=== PATIENT | male | born 1980 | race Caucasian/White ===

== ENCOUNTER 2017-11-26 12:31 | Emergency (ER) | payer SELFPAY ==
[2017-11-26 12:35] VITALS: BP 133/69; PULSE 76; RESP 14; TEMP 36.7; O2SAT 98
--- NOTE | 2017-11-26 12:45 | W.ED.GENAD ---
Discharge Plan Disposition Patient Disposition: HOME Condition: Stable Discharge Details Chief Complaint: Orthopedic Clinical Impression: Fracture of triquetral bone of left wrist Reason For Visit: FALL Primary Care Provider: NONE,NONE ED Provider: Carmen Pagan Home Meds and New Rx's Prescriptions: No Action No Known Home Meds RF: 0 Discharge Instructions Instructions: Wrist Fracture in Adults (ED), How to Use a Sling (GEN), Splint Care (ED) Additional Instructions: Please return immediately to the emergency department if you develop any new or worsening symptoms or if he become otherwise concerned. It is extremely important that you make an appointment to be seen by an orthopedic surgeon within the next 1-2 weeks for follow-up. Please take 400 mg of ibuprofen 3 times daily as needed for pain. Referrals: ORTHOPAEDICS,[facility] [OTHER] - Discharge Data Discharge Date/Time-TO BE ENTERED AT DEPARTURE: 11/26/17 15:15 Medical Decision Making MDM Narrative Medical decision making narrative: Aries Amaro is a 37-year-old man with a history of major medical problems presenting to the emergency department with left wrist pain after ladder-related fall yesterday. On exam patient is very well and nontoxic-appearing. There is no evidence of intracranial, spinal, or significant thoracoabdominal injury. Left wrist is diffusely tender. The left hand is neurovascularly intact. The proximal forearm, elbow, humerus, shoulder are atraumatic. Concern for wrist/hand fracture. Plan for x-rays. X-rays concerning for triquetral fracture. Discussed patient with Dr. Costa, who requested cock-up splint and outpatient follow-up with Ortho. Splint placed with normal post splint check, exposed digits are neurovascularly intact. Sling provided for comfort. Patient placed on Ortho list. Lengthy discussion with patient regarding return to emergency department precautions and importance of outpatient follow-up with orthopedics. Patient is amenable to plan. Imaging Data Radiologic Study: Attestation: I personally reviewed and interpreted this imaging study as follows: Imaging: X-Ray Radiologist's impression: LEFT HAND: Three views. On the lateral view, there is an osseous fragment posterior to the wrist. This may represent a displaced triquetral fracture. No other findings to suggest a fracture or dislocation are seen. No radiopaque foreign bodies are seen in the soft tissues. IMPRESSION: Osseous density at the dorsum of the wrist suspicious for a triquetral fracture. Please correlate with physical exam and clinical history. LEFT WRIST: Three views. There is an osseous density at the dorsum of the wrist suspicious for a triquetral fracture. No other fracture or dislocation is seen. There does appear to be some soft tissue swelling at the dorsum of the wrist. IMPRESSION: Osseous fragment in the soft tissues at the dorsum of the wrist suspicious for a triquetral fracture. HPI - General Adult General Mode of arrival: ambulatory. Date/Time Provider Initiated Documentation: 11/26/17 12:43. Limitations to Documentation: no limitations. Information obtained by: patient. HPI Narrative: Aries Amaro 37-year-old man without reported history of major medical problems presenting to the emergency department with left wrist pain. Patient reports that yesterday he climbed a ladder that was propped against the house. The latter was approximately 12 feet high. Patient reports that when he got to the top of the ladder, he began to slide down and fell to the ground. Patient reports that he landed on his left side. He initially had pain in his left wrist and left lower leg. He did not hit his head and had no loss of consciousness. Patient has been feeling overall well since the injury yesterday, aside from continued left wrist pain. Now with no pain in the left leg and no other pain. No cough, no shortness of breath, no vomiting. He denies numbness, tingling, or weakness of the left arm or hand. Has been eating and drinking as usual. No recent illnesses. He reports tetanus up-to-date. Related Data Home Medications Medication Instructions Recorded Confirmed Unknown [No Known Home Meds] 11/26/17 11/26/17 Allergies Allergy/AdvReac Type Severity Reaction Status Date / Time No Known Allergies Allergy Unverified 11/26/17 12:43 General Stated Complaint: Orthopedic WERO: 3 Review of Systems Review of Systems Constitutional: denies fevers Eyes: denies eye pain ENT: denies facial pain, dental pain, sore throat Cardiovascular: denies chest pain, edema Respiratory: denies SOB, cough GI: denies abdominal pain, vomiting, diarrhea : denies flank pain MSK: denies back pain, neck pain, myalgias; reports left wrist pain Skin: denies rash Neuro: denies headaches, lightheadedness, weakness, numbness, tingling [facility] Social History Smoking/Tobacco Use Status: Current every day Exam Narrative Exam Narrative: Constitutional: well and [id number], pleasant, conversing normally HENT: head atraumatic, normocephalic normal inspection, mucous membranes moist Eyes: conjunctiva normal, sclera normal, pupils 3mm b/l Neck: no stridor, normal ROM, trachea midline Chest: normal inspection Resp: normal work of breathing Cardio: normal rate, normal rhythm, radial pulses intact and symmetric Skin: warm, dry, normal color, no rash Neuro: alert, not altered, grossly non-focal, normal tone, normal gait Ext: left wrist with mild dorsal edema. diffuse TTP of the dorsal wrist. Able to range but with some pain. dorsal left hand diffusely TTP. No snuffbox TTP. FDS/FDP, UCL intact. normal sensation. Extremities o/w atraumatic Psych: normal mood, normal affect, normal behavior Course Vital Signs Temperature 36.7 C 11/26/17 12:35 Pulse 76 11/26/17 12:35 Respiratory Rate 14 11/26/17 12:35 Blood Pressure 133/69 11/26/17 12:35 Pulse Oximetry 98 11/26/17 12:35 Temperature 36.7 C 11/26/17 12:35 Pulse 76 11/26/17 12:35 Respiratory Rate 14 11/26/17 12:35 Blood Pressure 133/69 11/26/17 12:35 Pulse Oximetry 98 11/26/17 12:35
--- NOTE | 2017-11-26 13:01 | DI.RAD_ITS ---
SYMPTOMS/DIAGNOSIS: TRAUMA, WRIST PAIN, HAND PAIN LEFT HAND: Three views. On the lateral view, there is an osseous fragment posterior to the wrist. This may represent a displaced triquetral fracture. No other findings to suggest a fracture or dislocation are seen. No radiopaque foreign bodies are seen in the soft tissues. IMPRESSION: Osseous density at the dorsum of the wrist suspicious for a triquetral fracture. Please correlate with physical exam and clinical history. LEFT WRIST: Three views. There is an osseous density at the dorsum of the wrist suspicious for a triquetral fracture. No other fracture or dislocation is seen. There does appear to be some soft tissue swelling at the dorsum of the wrist. IMPRESSION: Osseous fragment in the soft tissues at the dorsum of the wrist suspicious for a triquetral fracture.
--- NOTE | 2017-11-26 13:19 | ED.GENADUL_ITS ---
Discharge Plan Disposition Patient Disposition: HOME Condition: Stable Discharge Details Chief Complaint: Orthopedic Clinical Impression: Fracture of triquetral bone of left wrist Reason For Visit: FALL Primary Care Provider: NONE,NONE ED Provider: Carmen Pagan Home Meds and New Rx's Prescriptions: No Action No Known Home Meds RF: 0 Discharge Instructions Instructions: Wrist Fracture in Adults (ED), How to Use a Sling (GEN), Splint Care (ED) Additional Instructions: Please return immediately to the emergency department if you develop any new or worsening symptoms or if he become otherwise concerned. It is extremely important that you make an appointment to be seen by an orthopedic surgeon within the next 1-2 weeks for follow-up. Please take 400 mg of ibuprofen 3 times daily as needed for pain. Referrals: ORTHOPAEDICS,[facility] [OTHER] - Discharge Data Discharge Date/Time-TO BE ENTERED AT DEPARTURE: 11/26/17 15:15 Medical Decision Making MDM Narrative Medical decision making narrative: Aries Amaro is a 37-year-old man with a history of major medical problems presenting to the emergency department with left wrist pain after ladder-related fall yesterday. On exam patient is very well and nontoxic-appearing. There is no evidence of intracranial, spinal, or significant thoracoabdominal injury. Left wrist is diffusely tender. The left hand is neurovascularly intact. The proximal forearm, elbow, humerus, shoulder are atraumatic. Concern for wrist/hand fracture. Plan for x-rays. X-rays concerning for triquetral fracture. Discussed patient with Dr. Costa , who requested cock-up splint and outpatient follow-up with Ortho. Splint placed with normal post splint check, exposed digits are neurovascularly intact. Sling provided for comfort. Patient placed on Ortho list. Lengthy discussion with patient regarding return to emergency department precautions and importance of outpatient follow-up with orthopedics. Patient is amenable to plan. Imaging Data Radiologic Study: Attestation: I personally reviewed and interpreted this imaging study as follows: Imaging: X-Ray Radiologist's impression: LEFT HAND: Three views. On the lateral view, there is an osseous fragment posterior to the wrist. This may represent a displaced triquetral fracture. No other findings to suggest a fracture or dislocation are seen. No radiopaque foreign bodies are seen in the soft tissues. IMPRESSION: Osseous density at the dorsum of the wrist suspicious for a triquetral fracture. Please correlate with physical exam and clinical history. LEFT WRIST: Three views. There is an osseous density at the dorsum of the wrist suspicious for a triquetral fracture. No other fracture or dislocation is seen. There does appear to be some soft tissue swelling at the dorsum of the wrist. IMPRESSION: Osseous fragment in the soft tissues at the dorsum of the wrist suspicious for a triquetral fracture. HPI - General Adult General Mode of arrival: ambulatory . Date/Time Provider Initiated Documentation: 11/26/17 12:43 . Limitations to Documentation: no limitations . Information obtained by: patient . HPI Narrative: Aries Amaro 37-year-old man without reported history of major medical problems presenting to the emergency department with left wrist pain. Patient reports that yesterday he climbed a ladder that was propped against the house. The latter was approximately 12 feet high. Patient reports that when he got to the top of the ladder, he began to slide down and fell to the ground. Patient reports that he landed on his left side. He initially had pain in his left wrist and left lower leg. He did not hit his head and had no loss of consciousness. Patient has been feeling overall well since the injury yesterday , aside from continued left wrist pain. Now with no pain in the left leg and no other pain. No cough, no shortness of breath, no vomiting. He denies numbness, tingling, or weakness of the left arm or hand. Has been eating and drinking as usual. No recent illnesses. He reports tetanus up-to-date. Related Data Home Medications Medication Instructions Recorded Confirmed Unknown [No Known Home Meds] 11/26/17 11/26/17 Allergies Allergy/AdvReac Type Severity Reaction Status Date / Time No Known Allergies Allergy Unverified 11/26/17 12:43 General Stated Complaint: Orthopedic WERO: 3 Review of Systems Review of Systems Constitutional: denies fevers Eyes: denies eye pain ENT: denies facial pain, dental pain, sore throat Cardiovascular: denies chest pain, edema Respiratory: denies SOB, cough GI: denies abdominal pain, vomiting, diarrhea : denies flank pain MSK: denies back pain, neck pain, myalgias; reports left wrist pain Skin: denies rash Neuro: denies headaches, lightheadedness, weakness, numbness, tingling [facility] Social History Smoking/Tobacco Use Status: Current every day Exam Narrative Exam Narrative: Constitutional: well and [id number], pleasant, conversing normally HENT: head atraumatic, normocephalic normal inspection, mucous membranes moist Eyes: conjunctiva normal, sclera normal, pupils 3mm b/l Neck: no stridor, normal ROM, trachea midline Chest: normal inspection Resp: normal work of breathing Cardio: normal rate, normal rhythm, radial pulses intact and symmetric Skin: warm, dry, normal color, no rash Neuro: alert, not altered, grossly non-focal, normal tone, normal gait Ext: left wrist with mild dorsal edema. diffuse TTP of the dorsal wrist. Able to range but with some pain. dorsal left hand diffusely TTP. No snuffbox TTP. FDS/FDP, UCL intact. normal sensation. Extremities o/w atraumatic Psych: normal mood, normal affect, normal behavior Course Vital Signs Temperature 36.7 C 11/26/17 12:35 Pulse 76 11/26/17 12:35 Respiratory Rate 14 11/26/17 12:35 Blood Pressure 133/69 11/26/17 12:35 Pulse Oximetry 98 11/26/17 12:35 Temperature 36.7 C 11/26/17 12:35 Pulse 76 11/26/17 12:35 Respiratory Rate 14 11/26/17 12:35 Blood Pressure 133/69 11/26/17 12:35 Pulse Oximetry 98 11/26/17 12:35
[2017-11-26] MEDS: Ibuprofen 400 MG TAB PO (14:55)
== END 2017-11-26 15:15 | disposition home or self-care (01) ==
PROVIDERS: Emergency Provider Student in an Organized Health Care Education/Training Program
DX: S62.112A Displaced fracture of triquetrum [cuneiform] bone, left wrist, initial encounter for closed fracture (principal); W10.8XXA Fall (on) (from) other stairs and steps, initial encounter
CPT/HCPCS: 25630; 73110; 73130; L3650; L3908

== ENCOUNTER 2022-01-02 16:41 | Emergency (ER) | payer MEDICAID, SELFPAY ==
[2022-01-02 16:52] VITALS: BP 111/72; PULSE 64; RESP 17; TEMP 36.7; O2SAT 97
--- NOTE | 2022-01-02 17:45 | DI.RAD_ITS ---
Exam(s) XR CHEST 2V PA LATERAL EXAM: XR CHEST 2V PA LATERAL CLINICAL HISTORY: cough, r/o acute disease TECHNIQUE: 2D digital imaging was performed. COMPARISON: No exams were available for comparison FINDINGS: The heart is not enlarged. The lungs are clear and well expanded. No pleural effusion seen. Mediastin al contours appear intact. IMPRESSION: Normal chest. RADIATION DOSE DELIVERED: Total DLP
[2022-01-02 19:09] VITALS: BP 131/75; PULSE 62; RESP 18; TEMP 36.9; O2SAT 96
--- NOTE | 2022-01-02 19:14 | DI.VRAD_ITS ---
PROCEDURE INFORMATION: Exam: XR Chest Exam date and time: 01/02/2022 18:47 Age: 41 years old Clinical indication: Cough and other: R/O acute disease TECHNIQUE: Imaging protocol: Radiologic exam of the chest. Views: 2 views. COMPARISON: No relevant prior studies available. FINDINGS: Lungs: Mild hyperinflation without airspace consolidation. Pleural spaces: No pleural effusion. No pneumothorax. Heart/Mediastinum: No cardiomegaly. Bones/joints: No acute fracture. IMPRESSION: Mild hyperinflation without airspace consolidation. Dictated and Authenticated by: Gracie Oliver MD. Ordering:RENE Hagan MD
--- NOTE | 2022-01-02 19:24 | ED.GENADUL_ITS ---
Discharge Plan Disposition Patient Disposition: HOME Condition: Stable Discharge Details Clinical Impression: Acute bronchitis Primary Care Provider: Lilly Monzon ED Provider: Danya Rowan Home Meds and New Rx's Prescriptions: New amoxicillin-pot clavulanate 875-125 mg tablet 1 tab PO BID 10 Days Qty: 20 0RF prednisone 20 mg tablet See Rx Instructions .ROUTE .COMPLEX Qty: 18 0RF Rx Instructions: Take 3 tabs daily for 3 days, then 2 tabs daily for 3 days, then 1 tab daily for 3 days. Continued methadone 10 mg/5 mL Solution 105 mg PO DAILY Discharge Instructions Instructions: Acute Bronchitis (ED) Additional Instructions: Drink plenty of fluids and get plenty of rest. Use the albuterol inhaler as needed and directed for cough, wheezing or shortness of breath. Prescriptions for steroids and antibiotics have been sent electronically to your pharmacy to take as directed until finished. Follow-up with your primary care doctor in 1 week. Return to the emergency department with any worsening or new concerning symptoms. Discharge Data Discharge Date/Time-TO BE ENTERED AT DEPARTURE: 01/02/22 19:53 Discharge Physician: Danya Rowan Medical Decision Making 41-year-old male with a history of tobacco smoking and on methadone for former opiate use in remission presents for productive cough, shortness of breath and wheezing for the past 2 weeks. Vitals within normal limits. He has a normal respiratory rate and oxygen saturation and is afebrile and appears nontoxic. He has diffuse wheezing throughout. Patient referred for chest x-ray which was negative for consolidation. Suspect bronchitis. Also discussed possibility of COVID although this appears less likely and more consistent with bronchitis. Patient was given a DuoNeb here with improvement of his symptoms and he felt better going home. He was also given a dose of oral steroids and oral Augmentin for bronchitis and to cover for potential for bacterial infection due to his persistent symptoms and history of smoking. Prescriptions for steroids and antibiotics sent electronically to his pharmacy. He was given an albuterol inhaler to go. Advised to follow up with the primary care doctor for re-evaluation. Usual and customary return precautions given prior to discharge. Medical Records Medical records reviewed: Yes I reviewed the patient's medical records. Imaging Data Radiologic Study: Radiologist's impression: XR Chest Exam date and time: 01/02/2022 18:47 Age: 41 years old Clinical indication: Cough and other: R/O acute disease TECHNIQUE: Imaging protocol: Radiologic exam of the chest. Views: 2 views. COMPARISON: No relevant prior studies available. FINDINGS: Lungs: Mild hyperinflation without airspace consolidation. Pleural spaces: No pleural effusion. No pneumothorax. Heart/Mediastinum: No cardiomegaly. Bones/joints: No acute fracture.? IMPRESSION: Mild hyperinflation without airspace consolidation. HPI General Mode of arrival: ambulatory . Date/Time Provider Initiated Documentation: 01/02/22 16:49 . Limitations to Documentation: no limitations . Information obtained by: patient . HPI Narrative: Pt is a 41yo M with a history of tobacco smoking who is on methadone for previous opiate abuse presents for productive cough, shortness of breath and wheezing for the past 2 weeks. He states his symptoms started with runny nose, nasal congestion, sore throat but states he has had since improved and still is mainly complaining of cough and shortness of breath. He denies any fever. He states he took a recent COVID test which is negative. Related Data Home Medications Medication Instructions Recorded Confirmed amoxicillin 875 mg-potassium 1 tab PO BID 10 days #20 tabs 01/02/22 clavulanate 125 mg tablet methadone 10 mg/5 mL oral solution 105 mg PO DAILY 01/02/22 01/02/22 prednisone 20 mg tablet See Rx Instructions .Route 01/02/22 .COMPLEX #18 tabs Previous Rx's Medication Instructions Recorded amoxicillin 875 mg-potassium 1 tab PO BID 10 days #20 tabs 01/02/22 clavulanate 125 mg tablet prednisone 20 mg tablet See Rx Instructions .Route 01/02/22 .COMPLEX #18 tabs Allergies Allergy/AdvReac Type Severity Reaction Status Date / Time No Known Allergies Allergy Unverified 01/02/22 16:56 General Stated Complaint: RespSymp WERO: 4 Review of Systems All systems reviewed & are unremarkable except as noted in HPI and below Constitutional Constitutional: Reports as per HPI, Denies chills and Denies fever(s) Eyes Eyes: Denies blurry vision ENT Ears, Nose, Mouth, and Throat: Denies dizziness, Denies sore throat and Denies throat swelling Cardiovascular Cardiovascular: Denies chest pain and Reports dyspnea Respiratory Respiratory: Reports cough and Reports dyspnea Gastrointestinal Gastrointestinal: Denies abdominal pain, Denies diarrhea and Denies vomiting Genitourinary Genitourinary: Denies hematuria and Denies dysuria Musculoskeletal Musculoskeletal: Denies back pain and Denies numbness Integumentary/Breasts Skin/Breast: Denies lesions and Denies rash Neurologic Neurologic: Denies dizziness, Denies localized weakness and Denies numbness Allergic/Immunologic Allergic/Immunologic: Denies throat swelling PFSH All Active Problems (Updated 01/02/22 @ 22:00 by Danya Rowan DO) Acute bronchitis (Acute) Medical History (Updated 01/02/22 @ 22:00 by Danya Rowan DO) Narcotic abuse in remission Surgical History (Updated 01/02/22 @ 22:00 by Danya Rowan DO) No significant past surgical history Social History Smoking/Tobacco Use Status: Current every day Tobacco Type: cigarettes Smoking risk assessment performed?: Yes Alcohol Intake: current Alcohol Intake frequency: a few times a month Drug use: Daily Substance use type: marijuana Do you feel safe in your relationship?: Yes Exam Const General: cooperative and no acute distress Orientation: alert, awake and oriented x3 HENMT Head: normal to inspection Ears: hearing grossly normal bilaterally, external ears normal and TM's normal bilaterally Face and sinus: normal facial exam Mouth: oral mucosae normal Throat: posterior oropharynx normal Eyes General: appearance normal, both eyes and all related structures Pupils: PERRL EOM: EOM intact bilaterally Neck Neck: normal visual inspection and No submandibular swelling Lymphatic: no lymphadenopathy noted Resp Effort & Inspection: normal respiratory effort and able to speak in complete sentences Auscultation: wheezes expiratory wheezes and inspiratory wheezes Cardio Rate: regular rate Rhythm: regular rhythm Skin General skin exam: no rashes or lesions noted Neuro General: patient alert, patient awake and patient oriented x3 Cognition: normal cognition Speech: speech normal Motor: muscle tone normal throughout Sensory Exam: no sensory deficits noted Extrem General: normal to inspection, full ROM, capillary refill normal, no calf tenderness bilaterally and no edema Psych Appearance: grossly normal Mental Status: mental status grossly normal Speech and Movement: speech and movement normal Affect: normal affect Course Vital Signs Vital signs: Vital Signs Temperature 98.0 F 01/02/22 16:52 Pulse 64 01/02/22 16:52 Respiratory Rate 17 01/02/22 16:52 Blood Pressure 111/72 01/02/22 16:52 Pulse Oximetry 97 01/02/22 16:52 Temperature 98.4 F 01/02/22 19:09 Temperature Source Oral 01/02/22 19:09 Pulse 62 01/02/22 19:09 Respiratory Rate 18 01/02/22 19:09 Respiratory Effort Short of Breath 01/02/22 16:54 Blood Pressure 131/75 01/02/22 19:09 Blood Pressure Position Sitting 01/02/22 16:52 Pulse Oximetry 96 01/02/22 19:09 Oxygen Delivery Method Room Air 01/02/22 19:09 Oxygen Flow Rate 0 01/02/22 19:09 Pain Level 0 01/02/22 19:09 PAWSS Have you Been Recently Intoxicated or Drunk Within the Last 30 days?: No Have you Ever Experienced Previous Episodes of Alcohol Withdrawal?: No Have you ever Experienced Withdrawal Seizures?: No Have you ever Experienced Delirium Tremens(DT)s?: No Have you ever undergone Alcohol Rehabilitation Treatment (i.e, inpt ot outpatient treatment programs)?: No Have you ever Experienced Blackouts?: No Have you ever Combined Alcohol with other Downers within the last 90 days?: No Have you ever Combined Alcohol with any other Substance of Abuse during the last 90 days?: No Result: 0
[2022-01-02] MEDS: predniSONE 20 MG TAB 60 MG PO (19:29)
[2022-01-02] MEDS: Albuterol/Ipratropium 3 ML UPD VIAL UPD (19:29)
[2022-01-02] MEDS: Amoxicillin 875/Clav. 125 TAB PO (19:29)
[2022-01-02] MEDS: Albuterol HFA 8 GM 60 PUFF INH IH (19:35)
[2022-01-02] MEDS: Inhaler, Assist Device 1 EACH MC (19:36)
[2022-01-02 19:47] VITALS: PULSE 88; RESP 1; RESP 18; O2SAT 98
== END 2022-01-02 19:53 | disposition home or self-care (01) ==
PROVIDERS: Emergency Provider Physician Assistant; PCP Family Medicine
DX: J20.9 Acute bronchitis, unspecified (principal); F17.210 Nicotine dependence, cigarettes, uncomplicated
CPT/HCPCS: 99283; 71046; 99284; J7512; J7620

== ENCOUNTER 2022-09-25 01:35 | Outpatient (CLI) | payer MEDICAID, SELFPAY ==
--- NOTE | 2022-09-25 10:15 | DI.CT_ITS ---
Exam(s) CT CHEST WO EXAM: CT CHEST WO CLINICAL HISTORY: [address] [place] [facility], R91.8. TECHNIQUE: Multi planar reconstructions were performed. CONTRAST MATERIAL: None COMPARISON: DX XR CHEST PA AND LATERAL (GENERIC) from 08/10/2022 DX XR CHEST from 08/22/2022 FINDINGS: CHEST: LUNGS: There are no infiltrates nor pleural effusions. No ominous pulmonary nodules evident. No sig nificant focal findings in the mainstem bronchi. Mild mucus is noted in the posterior wall of the lo wer trachea. No bronchiectasis. MEDIASTINUM: There is no obvious hilar nor mediastinal adenopathy. There is a nodule in the right thy roid lobe measuring approximately 1 cm x 1 cm. Noncalcified.No obvious axillary adenopathy CARDIAC: Heart size is normal. There is no pericardial effusion.Caliber of the thoracic aorta is wit hin normal limits. VISUALIZED UPPER ABDOMEN:No adrenal masses. No splenomegaly. OSSEOUS: There is a minimally displaced fracture of the lateral aspect of the left 3rd rib and there is a almost healed subjacent fracture of the left 4th rib. There is also partially healed fracture o f the left 6 rib. Also partially healed fracture of left 7th rib and left 8th rib and 9th rib and 10 th rib. There are no right rib fractures evident. No vertebral body fractures. No sternal fracture .. IMPRESSION: 1. There are multiple left-sided rib fractures involving the lateral and anterolateral aspects of the left 3rd through 10th ribs, these appearing subacute-partially healed, with the exception of the for rib fracture which does not exhibit callus formation at this time. No other fractures identified. No pneumothorax. No lung contusion. 2. No concerning lung nodules evident. 3. No intrathoracic adenopathy. RADIATION DOSE DELIVERED: 408.44mGy.cm Total DLP DATA REPOSITORY: All CT scans at this facility are submitted to the National Radiology Data Registry (NRDR) Dose Index Registry (DIR) with the [employer] (ACR). RADIATION OPTIMIZATION: All CT scans at this facility use at least one of these dose optimization te chniques: automated exposure control; mA and/or kV adjustment per patient size (includes targeted exa ms where dose is matched to clinical indication); or iterative reconstruction.
== END 2022-09-25 01:55 ==
LOC: DI 01:35
PROVIDERS: PCP Family Medicine; Visit Provider Family Medicine
DX: R91.8 Other nonspecific abnormal finding of lung field (principal); S22.42XA Multiple fractures of ribs, left side, initial encounter for closed fracture
CPT/HCPCS: 71250

== ENCOUNTER 2023-09-02 20:08 | Emergency (ER) | payer MEDICAID, SELFPAY ==
[2023-09-02 20:57] VITALS: BP 143/78; PULSE 86; RESP 16; TEMP 36.7; O2SAT 98
--- NOTE | 2023-09-02 21:00 | DI.RAD_ITS ---
Exam(s) XR CHEST 1V IN DI DEPT EXAM: XR CHEST 1V IN DI DEPT CLINICAL HISTORY: History of fall left hip pain TECHNIQUE: 2D digital imaging was performed. COMPARISON: CT CT CHEST WO from 09/25/2022 FINDINGS: LUNGS: Clear. No pleural abnormality seen. HEART: Normal size. AORTA: Normal diameter. BONES: Unremarkable for age. Soft tissues: Unremarkable. IMPRESSION: No acute findings. DATA REPOSITORY: RADIATION DOSE DELIVERED:
--- NOTE | 2023-09-02 21:00 | DI.RAD_ITS ---
Exam(s) XR HIP LT COMPLETE AP PELVIS EXAM: XR HIP LT COMPLETE AP PELVIS INDICATION: History of fall left hip pain. COMPARISON: CR XR PELVIS MIN 3 VIEWS from 08/14/2022 TECHNIQUE: 2D digital imaging was performed. Three views. FINDINGS: Cortical disruption seen at the left superior pubic ramus ischial junction, suspicious for nondisplac ed fracture. The femurs appear. The SI joints and pubic symphysis are not widened. No sacral fract ure is visible. IMPRESSION: Nondisplaced fracture at the left superior pubic ramus. DATA REPOSITORY: RADIATION DOSE DELIVERED:
--- NOTE | 2023-09-02 22:00 | DI.CT_ITS ---
Exam(s) CT THORACIC LUMBAR SPINE WO EXAM: CT THORACIC LUMBAR SPINE WO CLINICAL HISTORY: Low back pain. TECHNIQUE: Imaging Protocol: Axial, coronal and sagittal images were reconstructed utilizing bone an d soft tissue algorithm COMPARISON: CT CT CHEST WO from 09/25/2022 FINDINGS: Thoracic spine: Bones: No fractures are seen. The alignment of the spine is normal including the cervicothoracic nancy ction. Soft tissues: The soft tissues of the chest are unremarkable. No large disk herniations are identifie d. Minimal degenerative disc changes. Mild paraseptal and centrilobular emphysematous changes. Lumbar spine: No fracture is identified. Degenerative disc changes and facet degenerative changes are present at L 3-4 and L4-5, causing bilateral neural foraminal narrowing.. Soft tissues: There is no large disc herniation. No paraspinal hematoma. IMPRESSION: No acute abnormality of the thoracic or lumbar spine. RADIATION DOSE DELIVERED: 1,321.7mGy.cm Total DLP DATA REPOSITORY: All CT scans at this facility are submitted to the National Radiology Data Registry (NRDR) Dose Index Registry (DIR) with the [employer] (ACR). RADIATION OPTIMIZATION: All CT scans at this facility use at least one of these dose optimization te chniques: automated exposure control; mA and/or kV adjustment per patient size (includes targeted exa ms where dose is matched to clinical indication); or iterative reconstruction.
--- NOTE | 2023-09-02 22:03 | ED.GENADUL_ITS ---
Discharge Plan Discharge Details Chief Complaint: Orthopedic Clinical Impression: Closed fracture of left acetabulum Primary Care Provider: Nelda Ralph ED Provider: Darvin Shankar [facility] General Date/Time Provider Initiated Documentation: 09/02/23 21:04 . HPI Narrative: MDM Primary survey intact. Reassuring shock index. On secondary survey patient has marked left hip tenderness concerning for fracture for which she will receive plain films. Hip appears located so I am not concerned for dislocation. No pain out of proportion to suggest necrotizing soft tissue infection. No dysuria nor frequency so doubt UTI. Patient has not been vomiting and is not altered so my suspicion for significant intracranial hemorrhage is low based on the duration of time since the patient's injury so I did not complete a CT head. No preceding syncope no loss of consciousness and my suspicion for ACS and PE was low. No chest pain no shortness of breath so my suspicion is low for pneumothorax however will obtain a chest x-ray. If x-rays are unremarkable will increase sensitivity with CT scan. Left foot warm and well-perfused so not concern for critical limb ischemia so I did not feel that the patient required a CT angiogram with runoffs. No fevers and only mild pain with passive range of motion so my suspicion for septic joint was low. 10:15 PM In the event that there is a component of referred pain from the patient's hip will obtain CT lumbar and thoracic scan. On x-ray I am suspicious for left ileal fracture for which we will obtain CT scan. 12 AM On x-ray and CT scan patient had left acetabular fracture. Will consult orthopedics at [facility] as unfortunately there is not orthopedics on-call at the moment. Patient pain felt markedly improved following immediate release oral morphine. No thoracic nor lumbar spinal fractures will sign patient out to oncoming overnight provider, Dr. Salomon pending [facility] consult. HPI This is a 42-year-old previously healthy male arrived to the emergency department via private vehicle in the setting of left hip pain. 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 He was throwing boards off the deck and some nails on the boards got caught on his shirt and pants. He inadvertently fell off the bakari. He landed on his left hip. He reports that he took a gram of acetaminophen and 800 mg of ibuprofen earlier this afternoon at 4 PM. He has been icing his hip but had worsening pain. He had difficulty bearing weight. He reports that he might have hit his head but he did not lose consciousness. No preceding chest pain syncope nausea or vomiting. No neck pain. Exam General: Well-appearing in no acute distress speaking in complete sentences. Head: Normocephalic, atraumatic. Eye:[Pupils equal, round reactive to light.] Extraocular eye movements intact. No conjunctival injection. No scleral icterus. Ear, nose, mouth, throat: Grossly normal inspection. Normal voice, handling secretions normally. Neck: Trachea midline. Cardiovascular: Well-perfused distal extremities. Respiratory: Nonlabored respiration. Gastrointestinal: Nondistended abdomen. Musculoskeletal: No edema. Moving all 4 extremities spontaneously. Skin: Normal for age and race, grossly normal temperature and turgor. No acute rash. Neurologic: Alert and appropriate, no apparent acute deficits. Psychiatric: Mood and manner are appropriate. Grooming and personal hygiene are appropriate. Related Data Allergies Allergy/AdvReac Type Severity Reaction Status Date / Time No Known Allergies Allergy Verified 09/02/23 21:04 General Stated Complaint: Orthopedic WERO: 3 Course Vital Signs Vital signs: Vital Signs Temperature 36.7 C 09/02/23 20:57 Pulse 86 09/02/23 20:57 Respiratory Rate 16 09/02/23 20:57 Blood Pressure 143/78 H 09/02/23 20:57 Pulse Oximetry 98 09/02/23 20:57 Temperature 36.7 C 09/02/23 20:57 Temperature Source Temporal Artery Scan 09/02/23 20:57 Pulse 86 09/02/23 20:57 Respiratory Rate 16 09/02/23 20:57 Respiratory Effort Normal 09/02/23 21:03 Blood Pressure 143/78 H 09/02/23 20:57 Pulse Oximetry 98 09/02/23 20:57 Oxygen Delivery Method Room Air 09/02/23 20:57 Oxygen Flow Rate 0 09/02/23 20:57 Pain Level 10 09/02/23 20:57 Medical Decision Making Quality:SDOH Health Related Social Needs: No Data to Display PFSH All Active Problems (Updated 09/03/23 @ 00:06 by Darvin Shankar MD) Closed fracture of left acetabulum (Acute) Medical History (Updated 09/03/23 @ 00:06 by Darvin Shankar MD) Narcotic abuse in remission Surgical History (Updated 01/02/22 @ 22:00 by Danya Rowan DO) No significant past surgical history Social History Smoking/Tobacco Use Status: Current every day Tobacco Type: cigarettes Smoking risk assessment performed?: Yes Alcohol Intake: current Alcohol Intake frequency: a few times a month Drug use: Daily Substance use type: marijuana Do you feel safe in your relationship?: Yes
[2023-09-02] MEDS: Ibuprofen 600 MG TAB PO (22:24)
[2023-09-02] MEDS: Acetaminophen 500 MG TAB 1000 MG PO (22:24)
--- NOTE | 2023-09-02 23:23 | DI.VRAD_ITS ---
PROCEDURE INFORMATION: Exam: XR Left Hip Exam date and time: 09/02/2023 9:44 PM Age: 42 years old Clinical indication: Other: HX of falls -l hip pain TECHNIQUE: Imaging protocol: Radiologic exam of the left hip. Views: 2 or 3 views hip with pelvis when performed. COMPARISON: CR XR PELVIS MIN 3 VIEWS 08/14/2022 12:47 PM FINDINGS: Bones/joints: Subtle step-off along the inner cortical surface of the medial left acetabulum concerning for possible nondisplaced fracture. Otherwise no discrete or displaced fracture. No joint dislocation. Joint spaces appear symmetric and grossly preserved. Soft tissues: No focal abnormality. IMPRESSION: Subtle cortical step-off along the inner cortical surface of the medial left acetabulum concern for possible nondisplaced fracture. Dictated and Authenticated by: Sudhir Lynne MD. Ordering:ALLY Boston MD
--- NOTE | 2023-09-02 23:24 | DI.VRAD_ITS ---
PROCEDURE INFORMATION: Exam: XR Chest Exam date and time: 09/02/2023 9:41 PM Age: 42 years old Clinical indication: Other: HX of falls - hip pain TECHNIQUE: Imaging protocol: Radiologic exam of the chest. Views: 1 view. COMPARISON: CT CHEST WO 09/25/2022 10:03 AM FINDINGS: Lungs: Lungs are adequately inflated and symmetric. No focal consolidation or evidence of pulmonary edema. Pleural spaces: No visible pleural effusion. No pneumothorax. Heart/Mediastinum: Cardiomediastinal contours within normal limits. Bones/joints: No acute osseous finding. IMPRESSION: No acute findings. Dictated and Authenticated by: Sudhir Lynne MD. Ordering:ALLY Boston MD
--- NOTE | 2023-09-02 23:29 | DI.VRAD_ITS ---
PROCEDURE INFORMATION: Exam: CT Pelvis Without Contrast; Skeletal Exam date and time: 09/02/2023 10:38 PM Age: 42 years old Clinical indication: Injury or trauma; Fall; Blunt trauma (contusions or hematomas); Bilateral; Pelvic region TECHNIQUE: Imaging protocol: Computed tomography of the pelvis without contrast. Exam focused on the skeleton. COMPARISON: CR XR HIP LT COMPLETE AP PELVIS 09/02/2023 9:44 PM FINDINGS: Intestine: No dilated bowel in the pelvis. Appendix: No evidence of acute appendicitis. Intraperitoneal space: No free fluid in the pelvis. Reproductive: Unremarkable as visualized. Urinary bladder: Unremarkable as visualized. Bones/joints: There is mildly comminuted, nondisplaced fracture of the anterior left acetabulum with possible articular involvement extending to involve the lateral aspect of the superior left pubic ramus. No femoral neck fracture. No joint dislocation. Joint spaces appear symmetric and grossly preserved. Soft tissues: Mild asymmetric edema within the imaged medial, proximal left thigh musculature. IMPRESSION: Mildly comminuted, nondisplaced fracture of the anterior left acetabulum involving lateral aspect of the superior left pubic ramus. Dictated and Authenticated by: Sudhir Lynne MD. Ordering:ALLY Boston MD
--- NOTE | 2023-09-02 23:41 | DI.VRAD_ITS ---
PROCEDURE INFORMATION: Exam: CT Thoracic Spine Without Contrast Exam date and time: 09/02/2023 10:38 PM Age: 42 years old Clinical indication: Injury or trauma; Fall; Blunt trauma (contusions or hematomas) TECHNIQUE: Imaging protocol: Computed tomography of the thoracic spine without contrast. COMPARISON: CT CHEST WO 09/25/2022 10:03 AM FINDINGS: Bones/joints: There are 12 paired ribs with 12 thoracic type vertebral bodies. Thoracic vertebral body heights are preserved, no acute fracture. No spondylolisthesis, alignment is preserved. There is mild marginal osteophyte formation of the mid to lower thoracic spine. Intervertebral disc heights are grossly preserved. Osseous neural foramina and central canal are patent. Soft tissues: Paraspinal soft tissues unremarkable as visualized. Lungs: Partially visualized upper lobe predominant paraseptal greater than centrilobular emphysematous changes. IMPRESSION: 1. No acute fracture. 2. Mild thoracic spondylosis. PROCEDURE INFORMATION: Exam: CT Lumbar Spine Without Contrast Exam date and time: 09/02/2023 10:38 PM Age: 42 years old Clinical indication: Injury or trauma; Fall; Blunt trauma (contusions or hematomas) TECHNIQUE: Imaging protocol: Computed tomography of the lumbar spine without contrast. COMPARISON: CT PELVIC WO 09/02/2023 10:38 PM FINDINGS: Bones/joints: There are 5 [id number] lumbar type vertebra. Lumbar vertebral body heights are preserved, no acute fracture. No spondylolisthesis. There is moderate symmetric intervertebral disc height loss at L4-L5 with moderate intervertebral disc height loss asymmetric to the right at L3-L4. There are associated degenerative endplate changes at L4-L5 and asymmetrically to the right at L3-L4 with bridging right marginal osteophyte formation. There is bilateral osseous neural foraminal narrowing at L4-L5 and asymmetric to the right at L3-L4. No large posterior disc bulge or high-grade osseous central canal stenosis. Vasculature: No abdominal aortic aneurysm. Soft tissues: Paraspinal soft tissues unremarkable as visualized. IMPRESSION: 1. No acute fracture. 2. Moderate degenerative disc disease at L4-L5 greater than L3-L4. Dictated and Authenticated by: Sudhir Lynne MD. Ordering:ALLY Boston MD
[2023-09-03 00:38] LABS: HCT 40.9 % (40.0-50.0); HGB 13.7 g/dL (13.5-17.5)
[2023-09-03 00:54] LABS: Bilirubin Small (Negative); Blood Negative (Negative); Clarity Clear (Clear); Glucose Negative (Negative); Ketones Trace mg/dL (Negative); Leukocyte Esterase Negative (Negative); Nitrite Negative (Negative); Specific Gravity >= 1.030 (1.005-1.025); Urobilinogen 0.2 mg/dL (Up to 0.2); pH 5.5 (5-8)
[2023-09-03 01:01] LABS: Bacteria Negative HPF (Negative); Crystals Negative HPF (Negative); Epithelial Cells Negative HPF (Negative); Mucus Heavy (Negative); RBC 0-2 HPF (0-2); WBC 0-2 HPF (0-5)
[2023-09-03 01:02] LABS: C & S Indicated? No; Casts 0-2 Hyaline LPF (Negative)
--- NOTE | 2023-09-03 02:00 | DI.RAD_ITS ---
Exam(s) XR PELVIS AP EXAM: XR PELVIS AP CLINICAL HISTORY: acetabular fx. TECHNIQUE: 2D digital imaging was performed. Two oblique views COMPARISON: CR,XR XR HIP LT COMPLETE AP PELVIS from 09/02/2023 FINDINGS: BONES: A nondisplaced fracture seen extending vertically through the left superior pubic ramus. No a dditional fractures are. No bony destructive lesion is seen. JOINTS: No dislocation present. No joint space narrowing is present. SOFT TISSUE: Normal. IMPRESSION: Nondisplaced fracture left superior pubic ramus. DATA REPOSITORY: RADIATION DOSE DELIVERED:
--- NOTE | 2023-09-03 02:05 | ED.PROG_ITS ---
Date of service: 09/03/23 Time of Service: 02:47 Medical Decision Making 02:45 - Patient signed out to me pending callback from [facility] trauma and orthopedics. Patient suffered a fall 1 day prior and has had worsening left hip pain since. He is found to have a nondisplaced left acetabular fracture. Chest x-ray and TLS spine CT negative. No neurologic change, headache, loss of consciousness at time of fall. Discussed with Dr. Baker, trauma attending, at [facility]. This would appear to be an isolated acetabular fracture. Did request hemoglobin and urine which are completely fine. Received call from orthopedic resident. Judet view and reconstruction of the acetabular pelvis requested for follow-up purposes. Recommendation is to have patient be toe- touch only weight-bearing with use of walker. Will need follow-up and hopefully can see local orthopedist as opposed to going to [facility] for follow-up. Will need to discuss with our orthopedist in the morning as they are not available overnight tonight. Patient with good relief of his pain with single dose of oral morphine. Recommendation is to continue ice, ibuprofen, acetaminophen and prescription for oral morphine provided for breakthrough pain. 7am - Discussed with Dr. Umana who will review the images but feels they will likely be able to follow him up as outpatient here. His office will reach out to the patient directly. Sign Out Sign Out Data: Sign Out Comment: Please follow-up with [facility] Ortho/trauma concerning closed left acetabular fracture sustained yesterday. Patient has well-controlled pain on oral medications. Last updated by Darvin Shankar MD at 09/03/23 00:07 Discharge Plan Disposition Patient Disposition: Home Condition: Good Discharge Details Clinical Impression: Closed fracture of left acetabulum Primary Care Provider: Nelda Ralph ED Provider: Johnny Salomon Home Meds and New Rx's Prescriptions: New morphine 15 mg tablet 15 mg PO BID PRN (Reason: pain) Qty: 10 0RF Discharge Instructions Instructions: Pelvic fracture, Opioids for Short-Term Treatment of Pain ED Additional Instructions: You were found to have a left acetabular fracture which should be nonoperative. Per orthopedic recommendations tonight toe-touch weightbearing only on the left lower extremity. Continue use of ice and alternating acetaminophen with ibuprofen. A prescription for morphine immediate release tablets sent for any severe breakthrough pain. Be sure to use a stool softener while taking the morphine. Will discuss with orthopedics in the morning and you should hear from the office for follow-up. Do not eat or drink anything overnight or in the morning until you have heard from them. If they are uncomfortable with follow- up with you you will be referred to [facility] whom I did speak with tonight. Return to ED for any severe worsening pain, numbness, weakness, other concerns. Discharge Data Discharge Date/Time-TO BE ENTERED AT DEPARTURE: 09/03/23 03:13
--- NOTE | 2023-09-03 02:10 | DI.CT_ITS ---
Exam(s) CT PELVIC WO 3D RECON ON CT WORKSTATION EXAM: CT PELVIC WO CLINICAL HISTORY: Left hip pain. TECHNIQUE: Imaging Protocol: Axial computed tomography images with coronal and sagittal reformatted images were created and reviewed. CONTRAST MATERIAL: Oral: yes / no COMPARISON: No exams were available for comparison FINDINGS: Bladder: Symmetric distention, no gross wall thickening. Bowel: No obstruction or bowel wall thickening. Peritoneal cavity: No ascites, collection or mesenteric inflammatory response. Reproductive: Unremarkable. Bones: Comminuted nondisplaced fracture of the left ischial pubic junction and anterior acetabulum. No significant step-off at the articular surface. The femurs and sacrum as well as both hazel appear intact. No SI joint or pubic symphysis widening. Mild degenerative changes. Soft tissues: Edema around anteromedial upper spine musculature and anterior to acetabulum. IMPRESSION: Nondisplaced fracture of the left anterior acetabulum and junction of superior left pubic ramus. RADIATION DOSE DELIVERED: 1,321.7mGy.cmTotal DLP DATA REPOSITORY: All CT scans at this facility are submitted to the National Radiology Data Registry (NRDR) Dose Index Registry (DIR) with the [employer] (ACR). RADIATION OPTIMIZATION: All CT scans at this facility use at least one of these dose optimization te chniques: automated exposure control; mA and/or kV adjustment per patient size (includes targeted exa ms where dose is matched to clinical indication); or iterative reconstruction.
--- NOTE | 2023-09-03 02:48 | DI.VRAD_ITS ---
PROCEDURE INFORMATION: Exam: XR Pelvis Exam date and time: 09/03/2023 2:32 AM Age: 42 years old Clinical indication: Injury or trauma; Fall; Blunt trauma (contusions or hematomas); Left; Pelvic region TECHNIQUE: Imaging protocol: Radiologic exam of the pelvis. Views: 1 or 2 view. COMPARISON: CT PELVIC WO 09/02/2023 10:38 PM FINDINGS: Bones/joints: Stable alignment of mildly comminuted, nondisplaced fracture of the anterior left acetabulum involving the lateral aspect of the left superior pubic ramus. No joint dislocation. Joint spaces appear grossly preserved. Soft tissues: No focal abnormality. IMPRESSION: Stable alignment of mildly comminuted, nondisplaced fracture of the anterior left acetabulum involving the lateral aspect of the superior left pubic ramus. Dictated and Authenticated by: Sudhir Lynne MD. Ordering:DANIEL Turner MD
== END 2023-09-03 03:13 | disposition home or self-care (01) ==
PROVIDERS: Emergency Provider Emergency Medicine; PCP Family Medicine
DX: S32.445A Nondisplaced fracture of posterior column [ilioischial] of left acetabulum, initial encounter for closed fracture (principal); F17.210 Nicotine dependence, cigarettes, uncomplicated; W17.89XA Other fall from one level to another, initial encounter; Y93.H3 Activity, building and construction; Y92.096 Garden or yard of other non-institutional residence as the place of occurrence of the external cause
CPT/HCPCS: 00123; 76376; 99284; 71045; 72128; 72131; 72170; 72192; 73502; 81003; 81015; 85014; 85018

== ENCOUNTER 2024-05-24 15:32 | Outpatient (REF) | payer MEDICAID, SELFPAY ==
[2024-05-24 18:13] LABS: Anion Gap 9.1 mmol/L (3-11); BUN 27 mg/dL (7-18); CO2 28.9 mmol/L (21.0-32.0); Calcium 9.5 mg/dL (8.5-10.1); Calculated LDL 105 mg/dL (<100); Chloride 105 mmol/L (98-107); Cholesterol 182 mg/dL (<200); Estimated GFR 95.77 (mL/min/1.73m2); Glucose 90 mg/dL (74-106); HDL Cholesterol 59 mg/dL (>or=40); Potassium 4.7 mmol/L (3.5-5.1); Sodium 143 mmol/L (136-145); Triglyceride 94 mg/dL (<150)
[2024-05-25 10:16] LABS: HIV-1/2 Ag & Ab Screen Negative (Negative)
[2024-05-25 12:13] LABS: Hepatitis C Ab w Rflx HCV PCR Reactive (Negative)
[2024-05-26 12:38] LABS: HCV RNA Qualitative Undetected (Undetected)
== END 2024-05-24 15:33 | disposition home or self-care (01) ==
LOC: NCHCN 15:32
PROVIDERS: PCP Family Medicine; Visit Provider Family Medicine
DX: G89.29 Other chronic pain (principal); Z13.220 Encounter for screening for lipoid disorders; Z11.59 Encounter for screening for other viral diseases; Z11.4 Encounter for screening for human immunodeficiency virus [HIV]
CPT/HCPCS: 80048; 80061; 86803; 87389; 87522